=== PATIENT | female | born 1985 | race Caucasian/White ===

== ENCOUNTER 2023-09-25 17:24 | Emergency (ER) | payer OTHER, SELFPAY ==
--- NOTE | 2023-09-25 17:27 | ED.PDOC.TRB ---
ED Provider Triage
-
Patient seen by provider in Triage?: Seen in Triage
*Seen in triage to expedite initial workup*
38 yo female presents for eval of R knee/chan pain, slipped on a ball while on a trampoline. Reports that she 'saw something move' in the distal knee. Unable to bear weight. Intact pedal pulse. Will obtain XR R Tib/fib
[2023-09-25 17:28] VITALS: BP 152/87
--- NOTE | 2023-09-25 18:09 | ED.GENMED ---
History of Present Illness
General
Chief Complaint: Musculo-Skeletal Complaint
Source: patient
Exam Limitations: none
Time Seen by Provider: 09/25/23 17:34
Nursing documentation reviewed up to this point in time: agreed with
Travel History
Have you had any contact with someone who has COVID-19?: No
Do you have any symptoms of coronavirus? Fever > 100 degrees, chills, cough, shortness of breath, sore throat, loss of taste or smell, muscle aches, or headache?: No
History of Present Illness
History of Present Illness:
38-year-old female presenting to the emergency department today with concerns of right leg and right knee discomfort after jumping on a ball while jumping on a trampoline. She felt her knee bend and felt immediate pain unable to ambulate since.
Denies any numbness weakness or additional injuries.
Review of Systems
Review of Systems
Allergies reviewed?: Yes
All Other Systems: ROS reviewed and negative except as documented in HPI and ROS
Phy Exam
Physical Exam
Physical Exam:
GENERAL: Alert , in no apparent distress
EYE: pupils equal and reactive
NECK: Supple, no significant adenopathy.
ENT: o/p clr, mmm.
CARDIAC: Regular rate and rhythm .
LUNGS: Clear breath sounds bilaterally, no acute respiratory distress, no wheezes/rales/rhonchi
ABDOMEN: Soft, without focal tenderness, no r/g, no cvat
NEUROLOGICAL: Alert and oriented, no focal neuro deficits
SKIN: Warm and dry, skin intact.
MUSCULOSKELETAL: Mild tenderness palpation to the medial aspect of the knee no tenderness to the patella no tenderness throughout the tib-fib or tibial plateau no thigh pain no lateral knee pain no popliteal pain no edema, well perfused.
PSYCH: Normal and appropriate interaction.
Course
Orders/Labs/Results
Orders:
Orders
09/25/23 17:29
CR Leg Tibia/fibula Right 2 Vw Urgent
Comment:
Reason For Exam: injury
09/25/23 18:03
Acetaminophen [Tylenol] 650 mg PO NOW STA
Ibuprofen [Motrin] 600 mg PO NOW STA
CR Knee- Right 4 Or More View* Urgent
Comment:
Reason For Exam: kneepain after fall
09/25/23 18:41
Knee Immobilizer Left-Treatmen ONCE
Vital Signs
Initial and Last Documented VS:
Initial Vital Signs
Temp Pulse Resp BP Pulse Ox
98.0 F 89 16 152/87 100
09/25/23 17:28 09/25/23 17:28 09/25/23 17:28 09/25/23 17:28 09/25/23 17:28
Last Documented Vital Signs
Temp Pulse Resp BP Pulse Ox
98.0 F 89 16 152/87 100
09/25/23 17:28 09/25/23 17:28 09/25/23 17:28 09/25/23 17:28 09/25/23 17:28
MDM/Problems Addressed
MDM/Problems Addressed:
38-year-old female presenting to the emergency department today with concerns of right knee discomfort after slipping on a ball on trampoline prior to arrival. Pain mainly to the medial knee difficulty ambulating since. Patient is able to range
her knee but does have significant discomfort when doing so. Tenderness mainly to the medial knee no tenderness throughout the tib-fib or ankle. No significant swelling redness or warmth. X-ray without signs of fracture likely sprain. Placed in
a knee brace given crutches otherwise will follow-up with Ortho.
*Critical Care Note
Total Time (30-74mins, 75-104mins- exclusive of procedures): Not Applicable
ED Attending Note
-
Portions of this chart may have been created with voice recognition software.� Occasional wrong word or��sound alike� substitutions may have occurred due to the inherent limitations of voice recognition software.
Discharge Plan
Departure
Patient Disposition: Home (Routine Discharge)
Date of Disposition: 09/25/23
Time of Disposition: 18:41
Patient with high blood pressure during this ER visit?: No
Condition: Good
Covid-19: Not Applicable
Discharge Problem:
Knee sprain
Instructions: Knee Sprain (DC)
Referrals:
Hema Reeves MD [Active] - Follow up in 5-7 days
Kelly Chang DO [Family Provider] -
Activity Restrictions/Additional Instructions:
You came to the emergency department today with concerns of knee discomfort. Your x-rays did not show any bony abnormalities but this is likely a soft tissue or ligamentous injury. Please rest and have limited weightbearing until orthopedic
follow-up in the next week. Return to the emergency department for any worsening, new or concerning symptoms. Otherwise please rest ice and elevate help with symptoms.
Interventions
Interventions:
*ED COVID-19 Vaccine History Last Done: 09/25/23 17:28
*Nursing Disposition Last Done: 09/25/23 18:54
ED-Musculoskeletal Assessment Last Done: 09/25/23 18:53
Discharge Date and Time
Discharge Date/Time: 09/25/23 18:54
Print Language: [id number]
[2023-09-25] MEDS: TYLENOL 650 MG PO (18:23)
[2023-09-25] MEDS: MOTRIN 600 MG PO (18:24)
== END 2023-09-25 18:54 | disposition home or self-care (01) ==
LOC: EMR 17:24
PROVIDERS: EMERGENCY PHYSICIAN Emergency Medicine; FAMILY PHYSICIAN Family Medicine
DX: S83.91XA Sprain of unspecified site of right knee, initial encounter (principal); X58.XXXA Exposure to other specified factors, initial encounter; Y93.44 Activity, trampolining
CPT/HCPCS: 99283; 29505; 73564; 73590